=== PATIENT | female | born 1985 | race African-American/Black ===

== ENCOUNTER 2019-11-29 13:34 | Emergency (ER) | payer SELFPAY ==
[2019-11-29 14:05] VITALS: BP 132/72; PULSE 96; TEMP 98; BMI 29.0
--- NOTE | 2019-11-29 15:13 | PDOC ---
History of Present Illness - General Chief Complaint: Weakness Stated Complaint: DEHYDRATED Time Seen by Provider: 11/29/19 15:12 History Source: Patient - History of Present Illness Initial Comments: 11/29/19 15:28 Chief complaint: I feel dehydrated Patient is a 34-year-old female who denies any medical problems who takes Seroquel who states that for the last 2 to 3 days she has been feeling dehydrated, she feels like she needs to drink a lot of fluids and then she still feels dehydrated. She feels when she is drinking the fluid she gets a little short of breath. No shortness of breath now, not on contraception, no recent travel. Patient does not appear acutely ill or in distress. Patient is urinating. Patient does not feel like she has to eat all the time. No family history of diabetes. GENERAL/CONSTITUTIONAL: No fever, weakness. dizziness, + feeling dehydrated HEAD, EYES, EARS, NOSE AND THROAT: No change in vision. No ear pain or discharge. No sore throat. CARDIOVASCULAR: No chest pain RESPIRATORY: No shortness of breath or cough GASTROINTESTINAL: No pain, nausea, vomiting, diarrhea or constipation GENITOURINARY: No dysuria MUSCULOSKELETAL: No neck or back pain SKIN: No rash NEUROLOGIC: No headache, vertigo, loss of consciousness, or loss of sensation. GENERAL: The patient is awake, alert, and fully oriented, in no acute distress. HEAD: Normal with no signs of trauma. EYES: Pupils equal, round and reactive to light, sclera anicteric, conjunctiva clear. ENT: pharynx: no erythema, no exudate, uvula midline NECK: supple CHEST: clear, nontender, rr ABD: soft, nontender BACK: no tenderness or signs of injury EXTREMITIES: Normal range of motion, no edema. NEUROLOGICAL: Normal speech, normal gait. SKIN: Warm, Dry Past History - Past Medical History Allergies/Adverse Reactions: Allergies Allergy/AdvReac Type Severity Reaction Status Date / Time No Known Allergies Allergy Verified 11/29/19 14:05 Home Medications: Ambulatory Orders Cephalexin [Keflex] 1,000 mg PO BID #28 capsule 11/29/19 COPD: No - Psycho Social/Smoking Cessation Hx Smoking History: Never smoked *Physical Exam - Vital Signs Last Vital Signs Temp Pulse Resp BP Pulse Ox 98 F 96 H 18 132/72 100 11/29/19 14:01 11/29/19 14:01 11/29/19 14:01 11/29/19 14:01 11/29/19 14:01 ED Treatment Course - LABORATORY CBC & Chemistry Diagram: 11/29/19 16:05 11/29/19 16:05 Medical Decision Making - Medical Decision Making 11/29/19 15:29 34-year-old female who denies medical problems who feels dehydrated for the last 2 to 3 days. Patient does not look acutely ill. Patient will get basic labs, UA, test, flu swab. Denies any fever. 11/29/19 17:20 Labs are stable, patient has some bacteria in urine, will treat, patient will be instructed follow-up with her doctor for further evaluation and to be careful how much water she is drinking. Discussed issues, findings, results, applicable medications and treatments and follow-up. All these were understood and all questions were answered Discharge - Discharge Information Problems reviewed: Yes Clinical Impression/Diagnosis: General ill feeling UTI (urinary tract infection) Qualifiers: Urinary tract infection type: acute cystitis Hematuria presence: with hematuria Qualified Code(s): N30.01 - Acute cystitis with hematuria Condition: Stable Disposition: HOME - Admission No - Additional Discharge Information Prescriptions: Cephalexin [Keflex] 1,000 mg PO BID #28 capsule - Follow up/Referral Referrals: Bird Bowling [Primary Care Provider] - - Patient Discharge Instructions Patient Printed Discharge Instructions: DI for Urinary Tract Infection (UTI) Additional Instructions: Your labs were normal today except for your urine which showed you might have a small urine infection, we will treat you for that. Your urine is very dilute, you are not dehydrated, you may feel that way you need to be careful because if you keep drinking way too much water, you will make your sodium very low which can make you very sick and kill you. Drink 2-3 L of water daily Take the Keflex 1000 mg twice a day for 7 days take Acidophilus to help prevent yeast infection or stomach upset Return ER if fever, vomiting, feeling sicker Follow-up with your doctor in 2-3 days to discuss your symptoms and get further evaluation including evaluation of your medications - Post Discharge Activity
[2019-11-29 16:28] LABS: BASO % 0.5 % (0-2.0); EOS % 0.9 % (0-4.5); HEMATOCRIT 40.3 % (32.4-45.2); HEMOGLOBIN 13.6 GM/dL (10.7-15.3); LYMPH % 54.8 % (8-40); MCH 32.1 pg (25.7-33.7); MCHC 33.7 g/dl (32.0-36.0); MEAN CELL VOLUME 95.3 fl (80-96); MEAN PLT VOLUME 7.6 fl (7.5-11.1); MONO % 6.9 % (3.8-10.2); NEUT % 36.9 % (42.8-82.8); PLATELET COUNT 317 K/MM3 (134-434); RBC 4.23 M/mm3 (3.60-5.2); RDW 13.2 % (11.6-15.6); WHITE BLOOD COUNT 6.2 K/mm3 (4.0-10.0)
[2019-11-29 16:48] LABS: EPI CELLS 14.4 /HPF (0-5/HPF); HYALINE CASTS 3 /lpf (0-8); PH,URINE 5.5 (5.0-8.0); URINE APPEARANCE CLOUDY; URINE BACTERIA 511.6 /hpf (NEGATIVE); URINE BILIRUBIN NEGATIVE (NEGATIVE); URINE COLOR YELLOW; URINE GLUCOSE (UA) NEGATIVE (NEGATIVE); URINE KETONE NEGATIVE (NEGATIVE); URINE LEUK ESTERASE 3+ (NEGATIVE); URINE NITRITE NEGATIVE (NEGATIVE); URINE PROTEIN NEGATIVE (NEGATIVE); URINE RBC 4 /hpf (0-4); URINE UROBILINOGEN 0.2 mg/dL (0.2-1.0); URINE WBC 67 /hpf (0-5)
[2019-11-29 17:05] LABS: BLOOD UREA NITROGEN 13.4 mg/dL (7-18); CALCIUM 9.7 mg/dL (8.5-10.1); CREATININE 0.6 mg/dL (0.55-1.3); POTASSIUM 4.2 mmol/L (3.5-5.1)
== END 2019-11-29 17:31 | disposition home or self-care (01) ==
LOC: JERFT 13:34
DX: N30.01 Acute cystitis with hematuria (principal)
CPT/HCPCS: 36415; 80048; 81003; 84703; 85025; 87086; 87804; 99281-25